=== PATIENT | female | born 1980 | race Caucasian/White ===

== ENCOUNTER 2018-07-16 18:16 | Emergency (ER) | payer MEDICAID ==
[~2018-07-16] VITALS: Ht 165.1 cm; Wt 60.4 kg
[~2018-07-16 18:16] MED LIST: CLON-529 PO; ERYT1OIN6 OP; LIB25C PO; PHEN-824 PO; PROM25TA14 PO
[2018-07-16 18:19] VITALS: BP 137/107
[2018-07-16] MEDS ORDERED: AMOX500C2 PO (20:37)
== END 2018-07-16 20:51 | disposition home or self-care (01) ==
LOC: ER 18:17
DX: K08.89 Other specified disorders of teeth and supporting structures (principal); Z87.440 Personal history of urinary (tract) infections
CPT/HCPCS: 99283

== ENCOUNTER 2019-03-07 10:07 | Emergency (ER) | payer OTHER ==
--- NOTE | 2019-03-07 11:13 | NUR ---
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 ATTEMPTED TO CALL PT REGARDING LEAVING, PHONE # WAS NOT IN SERVICE
== END 2019-03-07 11:13 | disposition left against medical advice (07) ==
LOC: ER 10:07
DX: Z53.21 Procedure and treatment not carried out due to patient leaving prior to being seen by health care provider (principal)

== ENCOUNTER 2019-03-22 16:33 | Emergency (ER) | payer OTHER ==
[~2019-03-22] VITALS: Ht 165.1 cm; Wt 60.5 kg
--- NOTE | 2019-03-22 16:39 | NUR ---
NIL [id number]
[2019-03-22 16:50] VITALS: BP 139/100
[2019-03-22] MEDS ORDERED: METR-159 PO (18:19)
== END 2019-03-22 18:36 | disposition home or self-care (01) ==
LOC: ER 16:34
DX: N76.0 Acute vaginitis (principal); M54.5 Low back pain; F17.200 Nicotine dependence, unspecified, uncomplicated; Z79.899 Other long term (current) drug therapy
CPT/HCPCS: 99283

== ENCOUNTER 2022-03-29 14:50 | Emergency (ER) | payer MEDICAID ==
[~2022-03-29] VITALS: Ht 165.1 cm; Wt 61.4 kg
[2022-03-29 15:12] VITALS: BP 127/94
[2022-03-29] MEDS ORDERED: dexamethasone sod phosphate 10mg/ml inj IV STA (15:22)
[2022-03-29] MEDS ORDERED: piperacillin/tazo 3.375gm/50ml 50 ML IV ONE (15:25)
[2022-03-29] MEDS ORDERED: morphine 4 MG/ML inj SYRINge IV ONE (15:50)
[2022-03-29] MEDS ORDERED: ondansetron/PF 4mg/2ml inj IV ONE (15:50)
[2022-03-29] MEDS ORDERED: IOHEXOL 300 MG/ML 30ML INFUS..BTL IV ONE (15:51)
[2022-03-29] MEDS ORDERED: iohexol 300 MG/1 ML 50ml polymer ONE (18:00)
== END 2022-03-29 18:37 | disposition left against medical advice (07) ==
LOC: ER 14:51
DX: K04.7 Periapical abscess without sinus (principal); Z53.21 Procedure and treatment not carried out due to patient leaving prior to being seen by health care provider
CPT/HCPCS: Q9967

== ENCOUNTER 2024-11-17 01:42 | Emergency (ER) | payer MEDICAID ==
[~2024-11-17] VITALS: Ht 167.6 cm; Wt 74.0 kg
[2024-11-17 01:53] VITALS: PULSE 111
[2024-11-17 03:34] VITALS: BP 149/111; RESP 18; O2SAT 98
[2024-11-17 03:37] LABS: BILIRUBIN,URINE NEGATIVE (Neg); CLARITY,URINE CLEAR (Clear); COLOR,URINE YELLOW (Yellow); GLUCOSE, URINE NEGATIVE (Neg); KETONES,URINE 15 mg/dl (Neg); LEUKOCYTE ESTERASE ,URINE SMALL (Neg); NITRITES, URINE NEGATIVE (Neg); OCCULT BLOOD,URINE NEGATIVE (Neg); PROTEIN,URINE NEGATIVE (Neg); UROBILINOGEN,URINE 0.2 E.U/dL (0.2-1.0)
[2024-11-17 03:40] LABS: UA COLLECTION TYPE NON-SPECIFIED
[2024-11-17 03:43] LABS: BACTERIA,URINE 4+ /HPF (Neg); RBC,URINE NONE SEEN /HPF (0-2); SQUAMOUS EPITHELIAL CELL,UR FEW /LPF (FEW)
[2024-11-17 04:02] LABS: URINE HCG NEGATIVE (NEG)
[2024-11-17] MEDS: ibuprofen tablet 400 MG TABLET PO ONE (04:03)
[2024-11-17] MEDS: acetaminophen 325mg tablet PO ONE (04:03)
[2024-11-17 04:23] LABS: URINE AMPHETAMINE SCREEN POSITIVE (Neg); URINE BARBITUATE SCREEN NEGATIVE (Neg); URINE BENZODIAZEPINES SCREEN NEGATIVE (Neg); URINE CANNABINOID SCREEN POSITIVE (Neg); URINE COCAINE SCREEN NEGATIVE (Neg); URINE METHADONE SCREEN NEGATIVE (Neg); URINE OPIATE SCREEN NEGATIVE (Neg); URINE PHENCYCLIDINE SCREEN NEGATIVE (Neg)
[2024-11-17 04:59] VITALS: TEMP 99.3
== END 2024-11-17 05:13 | disposition home or self-care (01) ==
LOC: ER 01:42
DX: Z30.431 Encounter for routine checking of intrauterine contraceptive device (principal); N93.9 Abnormal uterine and vaginal bleeding, unspecified; F10.90 Alcohol use, unspecified, uncomplicated; Z79.899 Other long term (current) drug therapy; Y90.9 Presence of alcohol in blood, level not specified
CPT/HCPCS: 72170; 80305; 81001; 81025; 87088; 87186; 99284